=== PATIENT | female | born 1960 | race Caucasian/White ===

== ENCOUNTER 2025-10-15 12:18 | Observation (INO) | payer MEDICARE, SELFPAY ==
[2025-10-15 12:24] VITALS: BP 174/84; PULSE 80; RESP 20; TEMP 36.5; O2SAT 98
--- NOTE | 2025-10-15 13:00 | RT.EKG_ITS ---
APPROVED REPORT Exam: Resting ECG Reason for Exam: confusion Patient Location: E HR:65 bpm ECG Measurements Heart Rate 65 AXIS MS 146 P 38 QRSd 101 QRS 8 QT 439 T 32 QTc 458 Conclusion Sinus rhythm...normal P axis, V-rate 60- 99 Physician: No STEMI
--- NOTE | 2025-10-15 13:00 | DI.CT_ITS ---
Exam(s) CT BRAIN NECK CTA EXAM: CT BRAIN NECK CTA CLINICAL HISTORY: confusion, altered. TECHNIQUE: Imaging Protocol: Axial CT angiography was performed with multi- slice acquisition and multi-planar and/or 3D reconstructions. CONTRAST MATERIAL: Intravenous: Omnipaque 350 Contrast volume:structured data in ml COMPARISON: No exams were available for comparison FINDINGS: CTA Neck W: Aortic arch anatomy: The aortic arch anatomy is conventional and there is no significant stenosis at the origin of the great vessels off of the aortic arch. No intimal flap evident. Anterior circulation: Both common carotid arteries ascend with normal luminal diameters. At the level the carotid bulbs and proximal internal carotid arteries there is minimal plaque without hemodynamically significant stenosis evident. Posterior circulation: Both vertebral arteries originate in conventional fashion off of the subclavian arteries and there is no obvious stenosis at the origin of the vertebral arteries. Both vertebral arteries exhibit normal luminal diameters within the foramen transversarium. Both vertebral arteries contribute to the formation of the basilar artery at the skull base. CTA Brain W: Anterior circulation: Both internal carotid arteries are patent in the skull base-carotid canals as well as within the cavernous sinuses. The supraclinoid aspects of the ICAs are patent. Both A1 segments are patent as are the anterior cerebral arteries and there is no evidence of aneurysm at the level of the anterior communicating artery. Both middle cerebral arteries are patent with no evidence of significant stenosis nor intraluminal thrombus. There also no aneurysms of these vessels. Posterior circulation: The basilar artery ascends in the midline. Distally it gives off patent bilateral superior cerebellar arteries. Above this level the basilar artery terminates as patent bilateral posterior cerebral arteries. There is no evidence of aneurysm at the tip of the basilar artery nor elsewhere in the [id number]. CT BRAIN: There is no evidence of intracranial hemorrhage, mass effect, or shift of midline structures. There are no extra-axial fluid collections. Ventricles are not enlarged or shifted. There are no ring enhancing lesions in the brain and no abnormal meningeal enhancement. Small area of hypodensity in the white matter adjacent to the anterior horn of the right lateral ventricle. Probably consistent with chronic small vessel disease. IMPRESSION: 1. Patent carotid arteries in the neck. No hemodynamically significant stenosis. No dissection. 2. Patent vertebral arteries. No occlusion nor dissection. 3. Patent intracranial arteries. No significant stenosis nor occlusion and no dissection. 4. No aneurysms. No evidence of vascular malformation. No ring enhancing lesions in the brain. No acute intracranial findings. 5. If clinically indicated follow-up MRI with diffusion imaging can be performed. RADIATION DOSE DELIVERED: 2,104.25mGy.cm Total DLP DATA REPOSITORY: All CT scans at this facility are submitted to the National Radiology Data Registry (NRDR) Dose Index Registry (DIR) with the [employer] (ACR). RADIATION OPTIMIZATION: All CT scans at this facility use at least one of these dose optimization techniques: automated exposure control; mA and/or kV adjustment per patient size (includes targeted exams where dose is matched to clinical indication); or iterative reconstruction.
[2025-10-15 13:23] LABS: BE (Venous) 5 mmol/L (-2-3); HCO3 (Venous) 30 mmol/L (23-28); O2 Sat (Venous) 61 %; TCO2 (Venous) 27 mmol/L (24-29); pCO2 (Venous) 48 mmHg (41-51); pO2 (Venous) 34 mmHg
[2025-10-15 13:24] LABS: Abs Immature Grans 0.05 10^3/uL (0.0-0.06); HCT 38.2 % (36.0-46.0); HGB 13.0 g/dL (11.2-15.7); Immature Grans % 0.6 %; MCH 30.4 pg (27.0-33.0); MCHC 34.0 % (32.0-36.0); MCV 89 fL (80-95); MPV 10.9 fL (8.0-11.0); Platelet Count 216 10^3/uL (130-400); RBC 4.28 10^6/uL (3.93-5.22); RDW 12.3 % (11.7-14.6); RDW-SD 40.0 fL; WBC 8.78 10^3/uL (4.4-10.8)
[2025-10-15] MEDS: Normal Saline - Diluent 50 ML VIAL IJ (13:37)
[2025-10-15] MEDS: Omnipaque 350 MG/ML 100 ML BTL IJ (13:37)
[2025-10-15] MEDS: Normal Saline 1,000 ML 1000 ML IV (13:46)
[2025-10-15 13:51] LABS: ALT 21 U/L (10-49); AST 27 U/L (<34); Albumin 4.8 g/dL (3.2-5.0); Alkaline Phosphatase 57 U/L (46-116); Anion Gap 8.2 mmol/L (3-11); BUN 12 mg/dL (9-23); Bilirubin, Total 0.6 mg/dL (0.2-1.2); CO2 29.3 mmol/L (20.0-31.0); Calcium 9.4 mg/dL (8.3-10.6); Chloride 100 mmol/L (98-107); Glucose 120 mg/dL (74-106); Potassium 3.5 mmol/L (3.5-5.1); Sodium 137 mmol/L (136-145); Total Protein 7.9 g/dL (5.7-8.2)
[2025-10-15 13:53] LABS: TSH (W/Ref FT4) 3.04 uIU/mL (0.55-4.78)
[2025-10-15] MEDS: Normal Saline Flush 10 ML SYR IVP (13:58)
[2025-10-15 14:08] LABS: Ammonia < 10 umol/L (11-32)
--- NOTE | 2025-10-15 14:15 | DI.MRI_ITS ---
Exam(s) MR BRAIN WO EXAM: MR BRAIN WO CLINICAL HISTORY: confusion, altered, eval for stroke TECHNIQUE: Multiplanar multisequence MRI of the brain was performed. COMPARISON: CT CT BRAIN NECK CTA from 10/15/2025 FINDINGS: VENTRICLES AND EXTRA AXIAL SPACES: Normal in size and morphology for the patient's age. MIDLINE SHIFT: None. CEREBRAL PARENCHYMA: No focus of restricted diffusion to suggest acute infarct. No space-occupying lesion identified. No significant atrophy. Minimal scattered foci of high signal in the white matter consistent with sequela of chronic microvascular disease. BRAINSTEM/CEREBELLUM: Normal. VISUALIZED PARANASAL SINUSES: Clear. MASTOIDS:Clear. Vasculature: Normal flow void. PITUITARY GLAND: Unremarkable. ORBITS: Unremarkable. IMPRESSION: Unremarkable MRI of the brain. DATA REPOSITORY:
[2025-10-15 14:22] LABS: Glucose 100 mg/dL (Negative)
[2025-10-15 14:25] LABS: INR 1.0 (0.9-1.1); PTT Activated 25.2 sec (20.6-30.2); Prothrombin Time 10.4 sec (9.1-11.1)
--- NOTE | 2025-10-15 15:23 | ED.GENADUL_ITS ---
Discharge Plan Disposition Patient Disposition: Admit to [facility] Condition: Stable Discharge Details Clinical Impression: Transient global amnesia Primary Care Provider: Unknown,Unknown ED Provider: Ted Larios Home Meds and New Rx's Prescriptions: No Action benazepril-hydrochlorothiazide 10-12.5 mg tablet 1 tab PO DAILY aspirin 81 mg tablet 81 mg PO DAILY HPI General Date/Time Provider Initiated Documentation: 10/15/25 12:40 . HPI Narrative: This is a 65-year-old female with a past medical history of hypertension, who presents today for evaluation of confusion. Family states that patient has been acting normally all her life, including yesterday and today. The patient was seen by her last at 945 and she was acting normally then. At 1045 when the called her for some question she was confused and not acting in her normal fashion. He returned home and then came to the ER for further assessment. The patient was walking well, and showed no focal deficit, but did not know the date or where she was or what was going on in general. She has no history of strokes in the past, no history of heart attack. No recent medication changes, falls or trauma. No other complaints at this time. Related Data Home Medications ?Medication ?Instructions ?Recorded ?Confirmed aspirin 81 mg tablet 81 mg PO DAILY 10/15/2510/06 benazepril 10 1 tab PO DAILY 10/15/2510/06 0 mg-hydrochlorothiazide 12.5 mg tablet Allergies Allergy/AdvReac Type Severity Reaction Status Date / Time No Known Allergies Allergy Unverified 10/15/25 12:35 General Stated Complaint: CVA/TIA [place]: 3 Exam Narrative Exam Narrative: 1.Const: Well-nourished, Well-developed, appearing stated age 2.Eyes: PERRL, no conjunctival injection, and symmetrical lids. 3.ENT: Atraumatic external nose and ears. Moist MM. Neck: Symmetric, trachea midline, No thyromegaly. 4.CVS: +S1/S2, Peripheral pulses 2+ and equal in all extremities. Brisk capillary refill in all extremities. 5.RESP: Unlabored respiratory effort. Clear to auscultation bilaterally. No wheezes rales or rhonchi 6.GI: Soft, Nontender/Nondistended, No hepatosplenomegaly. No guarding or rebound. 7.MSK: Normocephalic/Atraumatic, Extremities w/o deformity or ttp No cyanosis or clubbing, Normal movement of all extremities 8.Skin: Warm, Dry. No rashes or lesions. 9.Neuro: ux design lead II-XII grossly intact. Sensation grossly intact, no focal neurologic deficits. All 6 cardinal planes of vision are fully intact. No evidence of rotatory or vertical nystagmus. The patient demonstrated a normal [id number], good dexterity. There was no evidence of dysdiadochokinesia. Patient was able to ambulate without difficulty. There was no wide-based gait. Romberg testing was normal. Kkzk-kz-dizw testing was normal. Sensation was intact bilaterally as well as muscle strength bilaterally for all extremities. Patient was able to verbalize butter cup with no slurring, or miss pronunciation. 10.Psych: (AAO) x2. Appropriate mood and affect Course Vital Signs Vital signs: Vital Signs Temperature 36.5 C 10/15/25 12:24 Pulse 80 10/15/25 12:24 Respiratory Rate 20 10/15/25 12:24 Blood Pressure 174/84 H 10/15/25 12:24 Pulse Oximetry 98 10/15/25 12:24 Temperature 36.5 C 10/15/25 12:24 Pulse 80 10/15/25 12:24 Respiratory Rate 20 10/15/25 12:24 Respiratory Effort Normal 10/15/25 12:48 Blood Pressure 174/84 H 10/15/25 12:24 Blood Pressure Position Sitting 10/15/25 12:24 Pulse Oximetry 98 10/15/25 12:24 Oxygen Delivery Method Room Air 10/15/25 12:24 Oxygen Flow Rate 0 10/15/25 12:24 Lab/Test Results Lab/Test Results: Laboratory Tests Range/Units 10/15/25 10/15/25 10/15/25 13:15 13:25 14:00 WBC (4.4-10.8) 10^3/uL 8.78 RBC (3.93-5.22) 10^6/uL 4.28 Hgb (11.2-15.7) g/dL 13.0 Hct (36.0-46.0) % 38.2 MCV (80-95) fL 89 MCH (27.0-33.0) pg 30.4 MCHC (32.0-36.0) % 34.0 RDW (11.7-14.6) % 12.3 Plt Count (130-400) 10^3/uL 216 MPV (8.0-11.0) fL 10.9 Immature Gran % % 0.6 Neutrophils % % 78.7 Lymphocytes % % 14.5 Monocytes % % 5.2 Eosinophils % % 0.7 Basophils % % 0.3 Nucleated RBC % (0.0-0.3) % 0.0 Absolute Neutrophils (1.2-6.7) 10^3/uL 6.91 H Absolute Lymphocytes (1.2-3.4) 10^3/uL 1.27 Absolute Monocytes (0.1-0.8) 10^3/uL 0.46 Absolute Eosinophils (0.0-0.7) 10^3/uL 0.06 Absolute Basophils (0.0-0.2) 10^3/uL 0.03 PT (9.1-11.1) sec 10.4 INR (0.9-1.1) 1.0 APTT (20.6-30.2) sec 25.2 VBG pH (7.31-7.41) 7.40 VBG pCO2 (41-51) mmHg 48 VBG pO2 mmHg 34 VBG HCO3 (23-28) mmol/L 30 H VBG Total CO2 (24-29) mmol/L 27 VBG O2 Saturation % 61 VBG Base Excess (-2-3) mmol/L 5 H Sodium (136-145) mmol/L 137 Potassium (3.5-5.1) mmol/L 3.5 Chloride (98-107) mmol/L 100 Carbon Dioxide (20.0-31.0) mmol/L 29.3 Anion Gap (3-11) mmol/L 8.2 BUN (9-23) mg/dL 12 Creatinine (0.55-1.02) mg/dL 0.55 Est GFR (CKD-EPI 2020) (mL/min/1.73m2) 110.20 Glucose (74-106) mg/dL 120 H Calcium (8.3-10.6) mg/dL 9.4 Total Bilirubin (0.2-1.2) mg/dL 0.6 AST (<34) U/L 27 ALT (10-49) U/L 21 Alkaline Phosphatase (46-116) U/L 57 Ammonia (11-32) umol/L < 10 L Total Protein (5.7-8.2) g/dL 7.9 Albumin (3.2-5.0) g/dL 4.8 TSH (0.55-4.78) uIU/mL 3.04 Urine Color (Yellow) Yellow Urine Clarity (Clear) Clear Urine pH (5-8) 6.0 Ur Specific [place] (1.005-1.025) 1.010 Urine Protein (Neg-Trace) mg/dL Negative Urine Ketones (Negative) mg/dL Negative Urine Blood (Negative) Negative Urine Nitrite (Negative) Negative Urine Bilirubin (Negative) Negative Urine Urobilinogen (Up to 0.2) mg/dL 0.2 Ur Leukocyte Esterase (Negative) Negative Urine Glucose (Negative) mg/dL 100 H Ethyl Alcohol (<3) mg/dL < 3.0 Medical Decision Making This is a 65-year-old female with a past medical history of hypertension, who presents today for evaluation of confusion. Family states that patient has been acting normally all her life, including yesterday and today. The patient was seen by her last at 945 and she was acting normally then. At 1045 when the called her for some question she was confused and not acting in her normal fashion. He returned home and then came to the ER for further assessment. The patient was walking well, and showed no focal deficit, but did not know the date or where she was or what was going on in general. She has no history of strokes in the past, no history of heart attack. No recent medication changes, falls or trauma. No other complaints at this time. Exam demonstrates notably well-appearing female, no focal deficits, no weakness, no asymmetry. No signs of trauma. The only abnormal component is that she is not certain of the year, or who the president is. She does know the month, where she is at, and who she is with, and who she is. Differential is broad but includes transient global amnesia, stroke, electrolyte abnormality, hyperammonemia, hypercarbia, we will get CT scan, evaluate for abnormalities, monitor closely, gently rehydrate and reassess. Infection also exist on the differential. [address] scan shows no evidence of bleed or hemorrhage. CT angio shows no evidence of significant carotid artery stenosis or other aneurysms or abnormalities. Patient has some minimal improvement of symptomatology. Will get MRI as it is currently available. Patient remains hemodynamically stable. While differential is still broad and still does include stroke, I do not feel that the patient would be an appropriate tPA candidate secondary to the notably low NIH stroke score of 1 or less than 1 and as there are multiple other etiologies that are high in the differential which would be non-TNK needing etiologies. I do feel that the risks of TNK are notably high at this time given the low NIH stroke score, and the absence of focal deficits to suggest definite stroke. 4:50 PM MRI has returned and shows no significant abnormality. Labs are unremarkable, carboxyhemoglobin relatively unremarkable at 1.6. Electrolytes stable. Urinalysis negative for infection, no significant elevation in pCO2. Ammonia level normal. Symptoms at this time are most concerning for transient global amnesia. I do feel the patient would benefit from an echo for further assessment, as well as nonemergent teleneuro. Discussed the case with the hospitalist Dr. Squires, he agrees with the assessment and plan. Family agrees as well. Patient will be admitted for further management. I have extensively reviewed the treatment plan with the patient. I have addressed all patient concerns at this time. I have also discussed the plan with the admitting physician and they agree with the current assessment and plan and have agreed to assume responsibility for the patient. All parties demonstrate verbal understanding and agreement with our assessment and plan at this time. The documentation in this chart was dictated using [employer] dictation software. Please excuse any dictation errors. FINDINGS: VENTRICLES AND EXTRA AXIAL SPACES: Normal in size and morphology for the patient's age. MIDLINE SHIFT: None. CEREBRAL PARENCHYMA: No focus of restricted diffusion to suggest acute infarct. No space-occupying lesion identified. No significant atrophy. Minimal scattered foci of high signal in the white matter consistent with sequela of chronic microvascular disease. BRAINSTEM/CEREBELLUM: Normal. VISUALIZED PARANASAL SINUSES: Clear. MASTOIDS:Clear. Vasculature: Normal flow void. PITUITARY GLAND: Unremarkable. ORBITS: Unremarkable. IMPRESSION: Unremarkable MRI of the brain. FINDINGS: CTA Neck W: Aortic arch anatomy: The aortic arch anatomy is conventional and there is no significant stenosis at the origin of the great vessels off of the aortic arch. No intimal flap evident. Anterior circulation: Both common carotid arteries ascend with normal luminal diameters. At the level the carotid bulbs and proximal internal carotid arteries there is minimal plaque without hemodynamically significant stenosis evident. Posterior circulation: Both vertebral arteries originate in conventional fashion off of the subclavian arteries and there is no obvious stenosis at the origin of the vertebral arteries. Both vertebral arteries exhibit normal luminal diameters within the foramen transversarium. Both vertebral arteries contribute to the formation of the basilar artery at the skull base. CTA Brain W: Anterior circulation: Both internal carotid arteries are patent in the skull base-carotid canals as well as within the cavernous sinuses. The supraclinoid aspects of the ICAs are patent. Both A1 segments are patent as are the anterior cerebral arteries and there is no evidence of aneurysm at the level of the anterior communicating artery. Both middle cerebral arteries are patent with no evidence of significant stenosis nor intraluminal thrombus. There also no aneurysms of these vessels. Posterior circulation: The basilar artery ascends in the midline. Distally it gives off patent bilateral superior cerebellar arteries. Above this level the basilar artery terminates as patent bilateral posterior cerebral arteries. There is no evidence of aneurysm at the tip of the basilar artery nor elsewhere in the [id number]. CT BRAIN: There is no evidence of intracranial hemorrhage, mass effect, or shift of midline structures. There are no extra-axial fluid collections. Ventricles are not enlarged or shifted. There are no ring enhancing lesions in the brain and no abnormal meningeal enhancement. Small area of hypodensity in the white matter adjacent to the anterior horn of the right lateral ventricle. Probably consistent with chronic small vessel disease. IMPRESSION: 1. Patent carotid arteries in the neck. No hemodynamically significant stenosis. No dissection. 2. Patent vertebral arteries. No occlusion nor dissection. 3. Patent intracranial arteries. No significant stenosis nor occlusion and no dissection. 4. No aneurysms. No evidence of vascular malformation. No ring enhancing lesions in the brain. No acute intracranial findings. 5. If clinically indicated follow-up MRI with diffusion imaging can be perform ed. [facility] All Active Problems (Updated 10/15/25 @ 16:52 by Ted Larios DO) HTN (hypertension) (Chronic) Transient global amnesia (Acute) Social History Smoking risk assessment performed?: No PAWSS Have you Been Recently Intoxicated or Drunk Within the Last 30 days?: No Have you Ever Experienced Previous Episodes of Alcohol Withdrawal?: No Have you ever Experienced Withdrawal Seizures?: No Have you ever Experienced Delirium Tremens(DT)s?: No Have you ever undergone Alcohol Rehabilitation Treatment (i.e, inpt ot outpatient treatment programs)?: No Have you ever Experienced Blackouts?: No Have you ever Combined Alcohol with other Downers within the last 90 days?: No Have you ever Combined Alcohol with any other Substance of Abuse during the last 90 days?: No Positive Blood Alcohol level on Presentation? [PCS.BAL]: No Evidence of Increased Autonomic Activity (i.e. HR>120, tremor, sweating, agitation, nausea)?: No Result: 0
[2025-10-15 16:05] LABS: Carboxyhemoglobin 1.6 % (0.5-1.5)
--- NOTE | 2025-10-15 16:38 | W.PM.HP.N ---
Date of service: 10/15/25 Time of Service: 16:38 Assessment and Plan Assessment and plan (1) Transient global amnesia: Status: Acute Assessment and plan: -suspected, as there is no focal neurological deficits and no acute findings on head CT or brain MRI -patient has not completly returned to baseline though has made some improvement - non-urgent tele-neuro consult placed, apprecaite recs (2) HTN (hypertension): Status: Chronic Assessment and plan: -continue home [id number]-[id number] History of Present Illness History of Present Illness Chief Complaint: confusion Narrative: Six 65-year-old female with past medical history of hypertension presents to the emergency department complaints of confusion. Patient's family states that she had been acting normal until about 9:45 in the AM she was last seen by family, but that upon calling the patient at 10:45 AM her noticed that she was confused and not acting herself. He returned home and brought her to the emergency department for further evaluation. Patient denies any complaints. In the emergency department the patient was noted to have a normal vital signs, normal CBC, CMP and a negative head CT. During physical exam was unremarkable except that patient was not certain of the year who the president was. She was able to state the month and where she was and who she was with. Patient also had brain MRI that was also without any acute findings. While in the emergency department patient's symptoms somewhat improved but she was still not back to her baseline. At which time emergency room provider paged hospitalist for admission for patient with likely global transient amnesia. Review of Systems All systems reviewed & are unremarkable except as noted in HPI and below PFSH All Active Problems (Updated 10/15/25 @ 16:52 by Ted Larios DO) HTN (hypertension) (Chronic) Transient global amnesia (Acute) Social History Smoking/Tobacco Use Status: Never Smoking risk assessment performed?: Yes Alcohol Intake: current Alcohol Intake frequency: a few times a month Alcohol type: wine Housing: house Meds Allergies and Home Medications Allergies Allergy/AdvReac Type Severity Reaction Status Date / Time No Known Allergies Allergy Unverified 10/15/25 12:35 Home Medications ?Medication ?Instructions ?Recorded ?Confirmed ?Type aspirin 81 mg tablet 81 mg PO DAILY 10/15/25 10/15/25 History benazepril 10 1 tab PO DAILY 10/15/25 10/15/25 History mg-hydrochlorothiazide 12.5 mg tablet Exam Narrative Exam Narrative: well appearing female laying in bed in no acute distress, awake, alert, oriented to person and place but not time, heart RRR, lungs CTAB, abdomen soft, non-tender, non-distended, CN II-XII intact, normal sensation and strength in bilateral upper and lower extremities Results Labs 10/16/25 06:06 10/16/25 06:06 Labs: Laboratory Results - last 24 hr 10/15/25 10/15/25 10/15/25 13:15 13:25 14:00 WBC 8.78 RBC 4.28 Hgb 13.0 Hct 38.2 MCV 89 MCH 30.4 MCHC 34.0 RDW 12.3 Plt Count 216 MPV 10.9 Immature Gran % 0.6 Neutrophils % 78.7 Lymphocytes % 14.5 Monocytes % 5.2 Eosinophils % 0.7 Basophils % 0.3 Nucleated RBC % 0.0 Absolute Neutrophils 6.91 H Absolute Lymphocytes 1.27 Absolute Monocytes 0.46 Absolute Eosinophils 0.06 Absolute Basophils 0.03 PT 10.4 INR 1.0 APTT 25.2 VBG pH 7.40 VBG pCO2 48 VBG pO2 34 VBG HCO3 30 H VBG Total CO2 27 VBG O2 Saturation 61 VBG Base Excess 5 H Carboxyhemoglobin % 1.6 H Sodium 137 Potassium 3.5 Chloride 100 Carbon Dioxide 29.3 Anion Gap 8.2 BUN 12 Creatinine 0.55 Est GFR (CKD-EPI 2020) 110.20 Glucose 120 H Calcium 9.4 Total Bilirubin 0.6 AST 27 ALT 21 Alkaline Phosphatase 57 Ammonia < 10 L Total Protein 7.9 Albumin 4.8 TSH 3.04 Urine Color Yellow Urine Clarity Clear Urine pH 6.0 Ur Specific [place] 1.010 Urine Protein Negative Urine Ketones Negative Urine Blood Negative Urine Nitrite Negative Urine Bilirubin Negative Urine Urobilinogen 0.2 Ur Leukocyte Esterase Negative Urine Glucose 100 H Ethyl Alcohol < 3.0 Last Vital Signs Temp 97.7 F 10/15/25 12:24 Pulse 80 10/15/25 12:24 Resp 20 10/15/25 12:24 BP 174/84 H 10/15/25 12:24 Pulse Ox 98 10/15/25 12:24 VTE Prohylaxis Risk Level: Moderate/High Risk Contraindications: None Prophylaxis: Pharmacologic PAWSS Have you Been Recently Intoxicated or Drunk Within the Last 30 days?: No Have you Ever Experienced Previous Episodes of Alcohol Withdrawal?: No Have you ever Experienced Withdrawal Seizures?: No Have you ever Experienced Delirium Tremens(DT)s?: No Have you ever undergone Alcohol Rehabilitation Treatment (i.e, inpt ot outpatient treatment programs)?: No Have you ever Experienced Blackouts?: No Have you ever Combined Alcohol with other Downers within the last 90 days?: No Have you ever Combined Alcohol with any other Substance of Abuse during the last 90 days?: No Positive Blood Alcohol level on Presentation? [PCS.BAL]: No Evidence of Increased Autonomic Activity (i.e. HR>120, tremor, sweating, agitation, nausea)?: No Result: 0 Time Spent Time spent with Patient: >75 minutes Time was spent: preparing to see the patient(eg.review tests), obtaining and/or reviewing separately otained hiistory, ordering medications,tests, procedures, referring, communicating with other health director of primary care, indepentently interpreting results, counseling the patient and care coordination
[2025-10-15 17:49] VITALS: BP 154/72; PULSE 85; RESP 18; TEMP 37.5; O2SAT 98
--- NOTE | 2025-10-15 17:54 | W.PC.ACHO ---
Registration Status: REG ER Primary Language: Preferred Language: ED Information & Data Chief Complaint CVA/TIA 10/15/25 15:27 Triage Note PT reports that she feels 10/15/25 12:24 disoriented and confused. Spouse reports drastic change in mentation since last known normal (prior to leaving home). PT struggling to remember events that had just occurred. [id number]. PT reports simply feeling weird. Most Recent Vital Signs Temperature 36.5 C 10/15/25 12:24 Pulse 80 10/15/25 12:24 Respiratory Rate 20 10/15/25 12:24 Respiratory Effort Normal 10/15/25 12:48 Blood Pressure 174/84 H 10/15/25 12:24 Blood Pressure Position Sitting 10/15/25 12:24 Pulse Oximetry 98 10/15/25 12:24 Oxygen Delivery Method Room Air 10/15/25 12:24 Oxygen Flow Rate 0 10/15/25 12:24 Allergies No Known Allergies Allergy (Unverified 10/15/25 12:35) Active Medications Generic Name Dose Route Start Last Admin Trade Name Margaret PRN Reason Stop Dose Admin Iohexol 100 ml 10/15/25 13:45 10/15/25 13:37 Omnipaque 350 Mg/Ml 100 Ml Btl IJ 11/14/25 23:59 70 ml DIRECTED GERRY Administration Sodium Chloride 0 ml 10/15/25 20:00 10/15/25 13:58 Normal Saline Flush 10 Ml Syr IVP 10 ml BID GERRY Administration Sodium Chloride 50 ml 10/15/25 13:45 10/15/25 13:37 Normal Saline - Diluent 50 Ml Vial IJ 50 ml DIRECTED GERRY Administration IV IV Catheter Type [Right Upper Saline Lock arm] IV Catheter Gauge [Right Upper 18 arm] Diagnostics 10/15/25 10/15/25 10/15/25 Range/Units 14:00 13:25 13:15 WBC 8.78 (4.4-10.8) 10^3/uL RBC 4.28 (3.93-5.22) 10^6/uL Hgb 13.0 (11.2-15.7) g/dL Hct 38.2 (36.0-46.0) % MCV 89 (80-95) fL MCH 30.4 (27.0-33.0) pg MCHC 34.0 (32.0-36.0) % RDW 12.3 (11.7-14.6) % Plt Count 216 (130-400) 10^3/uL MPV 10.9 (8.0-11.0) fL Immature Gran % 0.6 % Neutrophils % 78.7 % Lymphocytes % 14.5 % Monocytes % 5.2 % Eosinophils % 0.7 % Basophils % 0.3 % Nucleated RBC % 0.0 (0.0-0.3) % Absolute Neutrophils 6.91 H (1.2-6.7) 10^3/uL Absolute Lymphocytes 1.27 (1.2-3.4) 10^3/uL Absolute Monocytes 0.46 (0.1-0.8) 10^3/uL Absolute Eosinophils 0.06 (0.0-0.7) 10^3/uL Absolute Basophils 0.03 (0.0-0.2) 10^3/uL PT 10.4 (9.1-11.1) sec INR 1.0 (0.9-1.1) APTT 25.2 (20.6-30.2) sec VBG pH 7.40 (7.31-7.41) VBG pCO2 48 (41-51) mmHg VBG pO2 34 mmHg VBG HCO3 30 H (23-28) mmol/L VBG Total CO2 27 (24-29) mmol/L VBG O2 Saturation 61 % VBG Base Excess 5 H (-2-3) mmol/L Carboxyhemoglobin % 1.6 H (0.5-1.5) % Sodium 137 (136-145) mmol/L Potassium 3.5 (3.5-5.1) mmol/L Chloride 100 (98-107) mmol/L Carbon Dioxide 29.3 (20.0-31.0) mmol/L Anion Gap 8.2 (3-11) mmol/L BUN 12 (9-23) mg/dL Creatinine 0.55 (0.55-1.02) mg/dL Est GFR (CKD-EPI 2020) 110.20 (mL/min/1.73m2) Glucose 120 H (74-106) mg/dL Calcium 9.4 (8.3-10.6) mg/dL Total Bilirubin 0.6 (0.2-1.2) mg/dL AST 27 (<34) U/L ALT 21 (10-49) U/L Alkaline Phosphatase 57 (46-116) U/L Ammonia < 10 L (11-32) umol/L Total Protein 7.9 (5.7-8.2) g/dL Albumin 4.8 (3.2-5.0) g/dL TSH 3.04 (0.55-4.78) uIU/mL Urine Color Yellow (Yellow) Urine Clarity Clear (Clear) Urine pH 6.0 (5-8) Ur Specific [place] 1.010 (1.005-1.025) Urine Protein Negative (Neg-Trace) mg/dL Urine Ketones Negative (Negative) mg/dL Urine Blood Negative (Negative) Urine Nitrite Negative (Negative) Urine Bilirubin Negative (Negative) Urine Urobilinogen 0.2 (Up to 0.2) mg/dL Ur Leukocyte Esterase Negative (Negative) Urine Glucose 100 H (Negative) mg/dL Ethyl Alcohol < 3.0 (<3) mg/dL [id number] Documentation Fingerstick Glucose Start: 10/15/25 13:10 Freq: Status: Active Protocol: Activity Type Activity Date Activity User E-sign Co-sign Detail Recorded Client Recorded Date Recorded By Document 10/15/25 12:59 BKG DAEMON(3) [id number] 10/15/25 13:10 BKG DAEMON(4) Intake and Output - 24 Hour Total 10/15/25 12:18 thru 10/15/25 16:47 Intake Total 1000 Balance 1000 Weight 79.379 kg Intake: IV 1000 Falls Risk Assessment History of Falls No History 10/15/25 12:28 Contributing Factors No Factors 10/15/25 12:28 Ambulatory Aids Independent 10/15/25 12:28 Tubes/Lines None 10/15/25 12:28 Gait Evaluation No gait disturbance 10/15/25 12:28 Cognition No cognitive impairment 10/15/25 12:28 Fall Total Score 0 10/15/25 12:28 Level of Risk Standard/Low Risk 10/15/25 12:28 Problems HTN (hypertension) (Chronic) Transient global amnesia (Acute) Attestation Statement: By documenting the first initial, last name, and credentials of the reporting nurse below, both parties acknowledge that all relevant information regarding the patient handoff has been communicated, and that all questions have been addressed to ensure continuity and safety of care. Additional Patient Information/Comments: Pt paged at [phone], report called at [phone] and was told they would call back, called again at [phone] and report was received. Pt has 18 R upper arm. Report Received From: India Mckay ED RN
[2025-10-15 18:06] VITALS: BP 169/82; PULSE 82; RESP 18; TEMP 36.8; O2SAT 99
[2025-10-15 19:50] VITALS: BP 145/74; PULSE 71; RESP 17; TEMP 37.2; O2SAT 97
[2025-10-15 23:11] VITALS: BP 148/73; PULSE 70; RESP 18; TEMP 37.2; O2SAT 98
[2025-10-15] MEDS: Acetaminophen 325 MG TAB 650 MG PO (23:46)
[2025-10-16 03:15] VITALS: BP 130/56; PULSE 62; RESP 18; TEMP 36.3; O2SAT 97
[2025-10-16] MEDS: Ondansetron 4 MG/2 ML VIAL IVP ×2 (05:46→10:35)
[2025-10-16] MEDS: Normal Saline Flush 10 ML SYR IVP ×3 (05:47→10:35)
[2025-10-16] MEDS: Acetaminophen 325 MG TAB 650 MG PO ×2 (05:48→12:08)
[2025-10-16 06:40] LABS: HCT 30.1 % (36.0-46.0); HGB 10.4 g/dL (11.2-15.7); MCH 30.2 pg (27.0-33.0); MCHC 34.6 % (32.0-36.0); MCV 88 fL (80-95); MPV 11.2 fL (8.0-11.0); Platelet Count 198 10^3/uL (130-400); RBC 3.44 10^6/uL (3.93-5.22); RDW 12.2 % (11.7-14.6); RDW-SD 39.4 fL; WBC 7.17 10^3/uL (4.4-10.8)
[2025-10-16 07:06] LABS: Magnesium 1.6 mg/dL (1.6-2.6)
[2025-10-16 07:19] LABS: Anion Gap 8.6 mmol/L (3-11); BUN 7 mg/dL (9-23); CO2 27.1 mmol/L (20.0-31.0); Calcium 8.6 mg/dL (8.3-10.6); Chloride 95 mmol/L (98-107); Glucose 92 mg/dL (74-106); Potassium 2.8 mmol/L (3.5-5.1); Sodium 131 mmol/L (136-145)
[2025-10-16 07:41] VITALS: BP 122/67; PULSE 57; RESP 18; TEMP 36.4; O2SAT 94
[2025-10-16 08:00] VITALS: PULSE 64; O2SAT 92
[2025-10-16] MEDS: Enoxaparin 40 MG/0.4 ML SYR SC (08:00)
[2025-10-16] MEDS: Benazepril 10 MG TAB PO (08:01)
[2025-10-16] MEDS: Aspirin 81 MG CHEW PO (08:02)
[2025-10-16] MEDS: hydroCHLOROthiazide 12.5 MG TAB PO (08:02)
[2025-10-16] MEDS: POTASSIUM CHLORIDE 20 MEQ/100 ML BAG 50 MEQ IV INF ×2 (08:03→10:29)
--- NOTE | 2025-10-16 08:47 | DI.US_ITS ---
APPROVED REPORT EXAM: Comprehensive 2D, Doppler, and color-flow Echocardiogram Patient Location: In-Patient Room/Bed: [address] Project Manager: Beverley Zacarias RDCS (AE) Indications: Memory loss query TIA Query PFO Query Takotsubo Echo Enhancing Agent Indication: Rule out Shunt Agent(s) / Amount(s) Used: Agitated Saline 30.0 cc Comments: Contrast study was performed with 3 IV injections of 10ccs of agitated normal saline, at rest, with cough and post valsalva maneuver. Negative contrast study for shunt flow. Other Information Study Quality: Adequate. Technically limited study due to body habitus, exam done bedsie supine. Conclusion Normal left ventricular wall thickness and chamber size. Ejection fraction is 60%. Wall motion is normal Normal right ventricular size and function Both atria are normal in size No intracardiac shunting is demonstrated with injection of agitated saline There is no structural or hemodynamically significant valvular disease Normal estimated right ventricular systolic pressure 26 mmHg Wall motion Left Ventricle The left ventricle is normal size. The left ventricular systolic function is normal. The left ventricular ejection fraction is within the normal range. There is normal left ventricular wall thickness. There is normal LV segmental wall motion. There is no ventricular septal defect visualized. LVEF is 60%. Right Ventricle The right ventricle is normal size. The right ventricular systolic function is normal. Atria The left atrium size is normal. The right atrium size is normal. The interatrial septum is intact with no evidence for an atrial septal defect. Saline bubble contrast intravenous injection does not demonstrate PFO. Aortic Valve The aortic valve is normal in structure. Aortic valve is trileaflet. There is no aortic valvular stenosis. No aortic regurgitation is present. Mitral Valve The mitral valve is normal in structure. No evidence of mitral valve stenosis. Trace mitral regurgitation. Tricuspid Valve The tricuspid valve is normal in structure. There is no tricuspid valve stenosis. Trace tricuspid regurgitation. The RVSP is 26.4 mmHg. Pulmonic Valve The pulmonary valve is normal in structure. There is no pulmonic valvular stenosis. There is no pulmonic valvular regurgitation. Great Vessels The aortic root is normal in size. The ascending aorta is normal Aortic arch is not well visualized. IVC is normal in size and collapses >50% with inspiration. Pericardium There is no pericardial effusion. 2D Dimensions IVSD d PLAX 0.90 cm F: 0.6-1.0 Ao Root d 2.77 cm F: 2.7 - 3.3 LVPW d PLAX 0.90 cm F: 0.6 - 1.0 Ao Asc Diam d 3.20 cm F: 2.3 - 3.1 LVID d PLAX 5.10 cm F: 3.8 - 5.2 LVDs 3.44 cm F: 2.2 - 3.5 LV EF Teichholz 60.1 % FS 32.18 % LV EDV (Teich) 121.8 mL LV ESV (Teich) 48.6 mL M-Mode TAPSE 2.84 cm (M/F) >1.7 Auto EF LV EDV A4C 95.7 mL LV EDV A2C 123.7 mL LV EDV BP 108.1 mL LV ESV A4C 37.2 mL LV ESV A2C 48.0 mL LV ESV BP 43.1 mL LVEF(%) A4C 61.1 % LVEF(%) A2C 61.2 % LVEF(%) BP 60.1 % LV SV A4C 58.5 ml LV SV A2C 75.7 ml LV SV BP 65.0 ml LV CO A4C 3.1 L/min LV CO A2C 3.7 L/min LV CO BP 3.4 L/min HR A4C 52.18 BPM HR A2C 49.39 BPM LV EDV Index (BP) LA Volume LA Length A4C 4.8 cm LA Length A2C 4.8 cm LA Area A4C s 17.93 cm2 LA Area A2C s 15.11 cm2 LA Vol A4C A-L 57.12 mL LA Vol A2C A-L 40.31 mL LA Vol Biplane A-L 48.1 mL LA Vol/BSA A4C A-L LA Vol/BSA A2C A-L LA Vol/BSA BP A-L 26.9 mL/m2 LA Vol A4C MOD 52.7 mL LA Vol A2C MOD 37.7 mL LA Vol BP MOD 44.6 mL RA Volume RA Area A4C 16.7 cm2 RA ESV A4C (A-L) 43.0mL RA Vol/BSA A4C A-L RA Length A4C 5.5 cm RA ESV A4C (MOD) 40.8mL LV Diastology MV E' medial 0.092 (>0.07 m/s) MV E Vmax 0.81 (0.4-1.3 m/s) MV E/E' MED 8.76 (<14) MV A Vmax 0.90 (0.4-1.3 m/s) MV E' lateral 0.103 (>0.1 m/s) E/A Ratio 0.9 MV E/E' LAT 7.85 (<14) MV E' Average 0.097 m/s MV E/E'(average) 8.28 Aortic Valve AoV Vmax 1.56 m/s LVOT Vmax 1.24 m/s AoV Peak Grad 9.7 mmHg LVOT Peak Grad 6.1 mmHg AoV Area (Vmax) 2.28 cm2 LVOT VTI 0.328 m AoV VTI 0.390 m LVOT Mean Grad 3.8 mmHg AoV Mean Jacob. 1.05 m/s LVOT SV 93.86 mL AoV Mean Grad 5.0 mmHg LVOT Diam s 1.90 cm AoV Area (VTI) 2.40 cm2 AV Regurg Peak Gr. 9.73 mmHg Velocity Ratio 0.79 Mitral Valve MV DT 141 (160-240 msec) MV Vmax TIPS 0.99 m/s MV Mean Grad 1.6 (<2mmHg) MV VTI 0.297 m Pulmonary Valve PV Vmax 1.03 (0.5-1.5 m/s) RVOT Vmax 0.89 m/s PV Peak Grad 4.2 mmHg RVOT Peak Gr. 3.2 mmHg PV Mean Jacob 0.72 m/s RVOT VTI 0.223 m PV Mean Grad 2.3 mmHg RVOT Mean Gr. 1.8 mmHg Tricuspid Valve RA Pressure 3.00 mmHg TR Vmax 2.42 m/s TV S' 0.18 m/s TR Peak Grad 23.4 mmHg RVSP (TR) 26.4 mmHg
--- NOTE | 2025-10-16 09:52 | PDOC.CMIN ---
Date of service: 10/16/25 Time of Service: 09:52 Care Management Initial Assmt Initial Assessment Reason for Hospitalization: Transient global amnesia Functional Status/Living Situation Patient Presentation: Melia was sitting up in bed and awake when CM met with her. She presented to the ED for evaluation of confusion (see ED documentation). Per report, she is awaiting tele-neuro and there were no acute findings on imaging. Melia shares she is living in [place] with her Martin. No PCP - T doc is [facility] Town of Residence: [place] Resides with: Spouse (Martin) Natural Supports: Family Instrumental Activities of Daily Living (ADLs): Independent Medications Medication Management: No Issues/Barriers identified Advance Directives Advance Directives: Do you have an Advance Directive: N Today, 08:26 AD On File at [facility]: N Today, 08:26 Date Asked 10/15/25 10/15/25, 12:56 AD Date Reviewed COLST On File at [facility] COLST Date Scanned Code Status Resuscitation Status Full Code Portal Pt does not currently have a portal and education provided: Yes Insurance Coverage/Financial Issues Insurance: Medicare Part A & B - [id number] [facility] - [id number] Care Team Visit Care Team Role Provider Type Unknown Unknown Primary Care Provider STAFF PHYSICIAN Other Providers Ted Larios DO Emergency Provider [facility] STAFF PHYSICIAN Jaime Squires MD Admit Provider [facility] STAFF PHYSICIAN Attending Provider Discharge Potential Discharge Needs: Consult Consult Services Needed: Other (Tele neuro) and PCP F/U Appt Anticipated Barriers to Discharge: None Identified Patient/Family Education Needs: Review discharge instructions, discuss Ask Me Three Transportation: Private vehicle Plan: Anticipate Melia will be discharged home once medically, with no new services indicated at this time. It is recommended she follow up with her community providers, likely neurology, and discharge plan of care. She will transport via private vehicle by family. CM will follow. Social Determinants of Health Screening Social Determinants of health last assessed in clinic: 10/16/25 Will the Patient Participate in the Screening?: Yes Do you worry about having a steady place to live?: no Problems where you live: no known problems In the past 12 months, have you had to go without electric, gas, oil or water in your home?: no 1. Within the past 12 months, we worried whether our food would run out before we got money to buy more.: Never true 2. Within the past 12 months, the food we bought just didn't last and we didn't have money to get more.: Never true Has lack of transportation kept you from medical appointments or from doing things needed for daily living?: no Has anyone in your life made you feel unsafe or unsupported?: no How hard is it for you to pay for the very basics like food, housing, medical care, and heating? Would you say it is:: Not hard at all Do you want help finding or keeping work or a job?: I do not need or want help If for any reason you need help with day-to-day activities such as bathing, preparing meals, shopping, managing finances, etc., do you get the help you need?: I get all the help I need How often do you feel lonely or isolated from those around you?: Never Do you speak a language other than Telugu at home?: No Does the patient want assistance with any of the above?: No PFSH All Active Problems (Updated 10/15/25 @ 16:52 by Ted Larios DO) HTN (hypertension) (Chronic) Transient global amnesia (Acute) Social History Smoking/Tobacco Use Status: Never Smoking risk assessment performed?: Yes Alcohol Intake: current Alcohol Intake frequency: a few times a month Alcohol type: wine Housing: house Readmission Within the Past 30 Days Yes or No: No
--- NOTE | 2025-10-16 11:13 | PHA.REVIEW2 ---
Pharmacy Admission Review Admission Clinical Review Admission Pharmacy Review: Transient global amnesia (Acute) No Known Allergies Allergy (Unverified 10/15/25 12:35) Resuscitation Status Full Code Height 5 ft 1 in Weight 80.4 kg Pharmacy Admission Review Renal Dosing Renal Dosing: BUN 7 mg/dL (9-23) L 10/16/25 06:06 Creatinine 0.54 mg/dL (0.55-1.02) L 10/16/25 06:06 Medications needing adjustments: Reviewed (CrCl 52.43 mL/min) List of meds needing interventions: Current medications are okay Anticoagulation Anticoagulation: Hgb 10.4 g/dL (11.2-15.7) L D 10/16/25 06:06 Hct 30.1 % (36.0-46.0) L 10/16/25 06:06 Plt Count 198 10^3/uL (130-400) 10/16/25 06:06 INR 1.0 (0.9-1.1) 10/15/25 13:15 Creatinine 0.54 mg/dL (0.55-1.02) L 10/16/25 06:06 DVT Prophylaxis: Reviewed (Hgb decreased from 13) Medications: Enoxaparin (40mgd aily) Relevant Labs Relevant Labs: Sodium 131 mmol/L (136-145) L 10/16/25 06:06 Potassium 2.8 mmol/L (3.5-5.1) L* 10/16/25 06:06 Chloride 95 mmol/L (98-107) L 10/16/25 06:06 Magnesium 1.6 mg/dL (1.6-2.6) 10/16/25 06:06 Electrolytes, C-Reactive P, ESR: Reviewed (received potassium 20mEq IV infusion x 2 this morning) Cardiac Review BP, HR, EF%: Reviewed (BP and HR WNL) List meds needing interventions: Has orders for benazepril 10mg daily and hydrochlorothiazide 12.5mg daily QTc Review QTc: Reviewed (458 from 10/15/25) IV to PO Switch IV Medications: Reviewed (ondansetron) Home Meds Home Med List reviewed: Reviewed Current Meds Current Medication Order Review: Reviewed
--- NOTE | 2025-10-16 11:23 | CHAPLAIN ---
Melia is here with transient global amnesia. She was sleeping when in came into the room, but woke up when I said her name. I explained my role and offered support. She had a visitor (?) in the room with her. I'll follow up with another visit later.
[2025-10-16 11:27] VITALS: BP 141/65; PULSE 59; RESP 18; TEMP 36.4; O2SAT 96
--- NOTE | 2025-10-16 11:48 | CMDISCH_ITS ---
Date of service: 10/16/25 Time of Service: 11:48 LACE Index Scoring Tool Questions: Length of Stay (in days): 1 Was the patient admitted via the E.D.?: Yes E.D. Visits: 1 Answers: Total Score: 5 Risk of Readmission: Low Risk Care Management Discharge Plan Reason for Hospitalization: Transient global amnesia Discharge Plan: Melia will be discharged home today with no new services. It is recommended she follow up with her community providers, neurology, and discharge plan of care. PCP is Stephany Johnson and Hydrographical Technical Officer is Martin Millan; Discharge information is being sent to this office (. [phone]). Both affiliated with [facility], in [facility]. She will transport via private by her spouse. Patient/Family Education Needs: Review of discharge instruction, activity, limitations, and plan of care. Discuss ask me three.
--- NOTE | 2025-10-16 14:31 | W.PM.DS.N ---
Date of service: 10/16/25 Time of Service: 14:31 DS: Diagnosis Discharge Diagnosis (1) Transient global amnesia: Status: Acute (2) HTN (hypertension): Status: Chronic Discharge Plan Disposition Patient Disposition: Home Condition: Good Discharge Details Reason For Visit: Transient Global Amnesia Admit Date/Time: 10/15/25 16:38 Admit Provider: Jaime Squires Attending Provider: Jaime Squires Primary Care Provider: Unknown,Unknown Recommendations for Follow Up Recommended tests to be ordered by follow up provider: Patient initially presented to the hospital with an abrupt onset of short-term memory loss. In the emergency department the patient did not have any focal neurological deficits, had a negative head CT and MRI, therefore there was a suspicion for transient global amnesia. This was confirmed with teleneuro consultation, especially given that patient's memory had returned and she had only not remembered the few hours leading up to and during her first day in the hospital. Given that the patient is back to baseline it was determined that she was stable for discharge home and will have outpatient referral to neurology. Home Meds and New Rx's Prescriptions: New ondansetron 4 mg tablet,disintegrating 4 mg PO Q8H 3 Days Qty: 9 0RF Continued benazepril-hydrochlorothiazide 10-12.5 mg tablet 1 tab PO DAILY aspirin 81 mg tablet 81 mg PO DAILY Discharge Instructions Stand Alone Forms: Portal Information Activity:: Activity as Tolerated Equipment/Supplies:: No Equipment Needed Diet:: As Tolerated Discharge Orders Discharge Orders: Discharge Order (Routine); Ordered 10/16/25 Ordered By: Jaime Squires DS: Summary Time Spent with Patient providing and/or coordinating discharge services: Greater than 30 minutes Status at Discharge Functional status at discharge: independent ambulation Overall status at discharge: patient is back to baseline Mental Status: mental status grossly normal Speech and Movement: speech and movement normal Mood: congruent mood Affect: normal affect Exam Narrative Exam Narrative: well appearing female laying in bed in no acute distress, A&Ox4, heart RRR, lungs CTAB, abdomen soft, non-tender, non-distended, CN II-XII intact, normal sensation and strength in bilateral upper and lower extremities Psych Mental Status: mental status grossly normal Speech and Movement: speech and movement normal Mood: congruent mood Affect: normal affect DS: Data Vitals/I&O Vitals and I&O: Vital Signs Temperature 97.5 F L 10/16/25 11:27 Temperature Source Temporal Artery Scan 10/16/25 11:27 Pulse 59 L 10/16/25 11:27 Pulse Rhythm Regular 10/15/25 18:06 Respiratory Rate 18 10/16/25 11:27 Respiratory Effort Normal, Non-Labored 10/15/25 18:06 Respiratory Depth Normal 10/15/25 18:06 Respiratory Pattern Normal 10/15/25 18:06 Blood Pressure 141/65 H 10/16/25 11:27 Blood Pressure Mean 90 10/16/25 11:27 Blood Pressure Position Sitting 10/15/25 12:24 Pulse Oximetry 96 10/16/25 11:27 Oxygen Delivery Method Room Air 10/16/25 11:27 Oxygen Flow Rate 0 10/16/25 11:27 Pain Level 5 10/16/25 12:35 Comment Above VS are from sitting. Standing -BP 147/86, HR 100 Supine -BP 152/75, HR 78 10/15/25 18:06 Intake & Output 10/15/25 10/16/25 10/16/25 17:59 05:59 17:59 Intake Total 1000 / 1000 440 / 440 Balance 1000 / 1000 440 / 440 Weight 175 lb 177 lb 4.026 oz Intake: IV 1000 / 1000 200 / 200 Oral 240 / 240 Other: Urine Color Pale Yellow Urine Appearance Clear Clear Urine Odor Normal Normal Comment pt voids to toilet. Patient voided into toilet, unmeasured. Stool Size Moderate Stool Characteristics Soft Formed Data Completed and Pending Pending Labs at Discharge: 10/15/25 10/15/25 10/15/25 13:15 13:25 14:00 WBC 8.78 RBC 4.28 Hgb 13.0 Hct 38.2 MCV 89 MCH 30.4 MCHC 34.0 RDW 12.3 Plt Count 216 MPV 10.9 Immature Gran % 0.6 Neutrophils % 78.7 Lymphocytes % 14.5 Monocytes % 5.2 Eosinophils % 0.7 Basophils % 0.3 Nucleated RBC % 0.0 Absolute Neutrophils 6.91 H Absolute Lymphocytes 1.27 Absolute Monocytes 0.46 Absolute Eosinophils 0.06 Absolute Basophils 0.03 PT 10.4 INR 1.0 APTT 25.2 VBG pH 7.40 VBG pCO2 48 VBG pO2 34 VBG HCO3 30 H VBG Total CO2 27 VBG O2 Saturation 61 VBG Base Excess 5 H Carboxyhemoglobin % 1.6 H Sodium 137 Potassium 3.5 Chloride 100 Carbon Dioxide 29.3 Anion Gap 8.2 BUN 12 Creatinine 0.55 Est GFR (CKD-EPI 2020) 110.20 Glucose 120 H Calcium 9.4 Magnesium Total Bilirubin 0.6 AST 27 ALT 21 Alkaline Phosphatase 57 Ammonia < 10 L Total Protein 7.9 Albumin 4.8 TSH 3.04 Urine Color Yellow Urine Clarity Clear Urine pH 6.0 Ur Specific [place] 1.010 Urine Protein Negative Urine Ketones Negative Urine Blood Negative Urine Nitrite Negative Urine Bilirubin Negative Urine Urobilinogen 0.2 Ur Leukocyte Esterase Negative Urine Glucose 100 H Ethyl Alcohol < 3.0 10/16/25 06:06 WBC 7.17 RBC 3.44 L Hgb 10.4 L D Hct 30.1 L MCV 88 MCH 30.2 MCHC 34.6 RDW 12.2 Plt Count 198 MPV 11.2 H Immature Gran % Neutrophils % Lymphocytes % Monocytes % Eosinophils % Basophils % Nucleated RBC % Absolute Neutrophils Absolute Lymphocytes Absolute Monocytes Absolute Eosinophils Absolute Basophils PT INR APTT VBG pH VBG pCO2 VBG pO2 VBG HCO3 VBG Total CO2 VBG O2 Saturation VBG Base Excess Carboxyhemoglobin % Sodium 131 L Potassium 2.8 L* Chloride 95 L Carbon Dioxide 27.1 Anion Gap 8.6 BUN 7 L Creatinine 0.54 L Est GFR (CKD-EPI 2020) 112.56 Glucose 92 Calcium 8.6 Magnesium 1.6 Total Bilirubin AST ALT Alkaline Phosphatase Ammonia Total Protein Albumin TSH Urine Color Urine Clarity Urine pH Ur Specific [place] Urine Protein Urine Ketones Urine Blood Urine Nitrite Urine Bilirubin Urine Urobilinogen Ur Leukocyte Esterase Urine Glucose Ethyl Alcohol PFSH All Active Problems (Updated 10/15/25 @ 16:52 by Ted Larios DO) HTN (hypertension) (Chronic) Transient global amnesia (Acute) Social History Smoking/Tobacco Use Status: Never Smoking risk assessment performed?: Yes Alcohol Intake: current Alcohol Intake frequency: a few times a month Alcohol type: wine Housing: house Time Spent with Patient Time Spent with Patient: <45 minutes Time was spent: preparing to see the patient(eg.review tests), obtaining and/or reviewing separately otained hiistory, ordering medications,tests, procedures, referring, communicating with other health insurance healthcare representative, indepentently interpreting results, counseling the patient and care coordination
== END 2025-10-16 15:34 | disposition home or self-care (01) ==
LOC: ER 16:52 → MS 18:27
PROVIDERS: Admitting Provider Family Medicine; Emergency Provider Student in an Organized Health Care Education/Training Program; Responsible Provider Family Medicine; Visit Provider Family Medicine
DX: G45.4 Transient global amnesia (principal); I10 Essential (primary) hypertension; Z79.899 Other long term (current) drug therapy
CPT/HCPCS: 00123; 36415; 36416; 70496; 70498; 80048; 80053; 82375; 82805; 82962; 85027; 93005; 93306; 96360; 96361; 99285; J1650; 70551; 80320; 81003; 82140; 83735; 84443; 85025; 85610; 85730; 93010; 99223; 99239; G0378; J2405; J3480; J3490